=== PATIENT | female | born 1985 | race African-American/Black ===

== ENCOUNTER 2023-06-20 09:28 | Day surgery (SDC) | payer OTHER ==
[~2023-06-20] VITALS: Ht 162.6 cm; Wt 101.6 kg
[2023-06-20 10:33] LABS: BASOPHILS % (AUTO) 0.6 % (0.0-2.0); EOSINOPHILS # (AUTO) 0.1 K/uL (0-0.4); EOSINOPHILS % (AUTO) 1.1 % (0.0-4.0); HEMATOCRIT 38.8 % (36-48); HEMOGLOBIN 13.2 g/dL (12.0-16.0); LYMPHOCYTES # (AUTO) 2.1 K/uL (2.5-16.5); LYMPHOCYTES % (AUTO) 31.8 % (20.5-51.1); MEAN CORPUSCULAR HEMOGLOBIN 28 pg (27-31); MEAN CORPUSCULAR HGB CONC 34 g/dL (33-37); MEAN CORPUSCULAR VOLUME 82.4 fL (80-94); MONOCYTES # (AUTO) 0.4 K/uL (0.8-1.0); MONOCYTES % (AUTO) 6.5 % (1.7-9.3); NEUTROPHILS # (AUTO) 3.9 K/uL (1.8-7.7); PLATELET COUNT (AUTO) 291 K/uL (140-450); RED BLOOD CELL COUNT(AUTO) 4.71 MIL/uL (4.20-5.40); RED CELL DISTRIBUTION WIDTH 14.7 % (11.6-13.7); WHITE BLOOD COUNT (AUTO) 6.5 K/uL (4.8-10.8)
[2023-06-20] MEDS ORDERED: KETOROLAC 30 MG/ML VIAL ONE (11:00)
[2023-06-20] MEDS ORDERED: DEXAMETHASONE 4 MG/ML VIAL ONE (11:00)
[2023-06-20] MEDS ORDERED: ONDANSETRON 4 MG/2 ML VIAL ONE (11:00)
[2023-06-20] MEDS ORDERED: COMMUNICATION ORDER MC PRN (11:30)
[2023-06-20] MEDS ORDERED: FERRIC SUBSULFATE 20%-22%-8 ML PASTE TP ONE (11:30)
[2023-06-20] MEDS ORDERED: MIDAZOLAM 2 MG/2 ML VIAL ONE (11:38)
[2023-06-20] MEDS ORDERED: fentaNYL citrate 0.05 MG/ML VIAL ONE (11:39)
[2023-06-20] MEDS ORDERED: PROPOFOL 200 MG/20 ML VIAL IV ONE (11:39)
[2023-06-20] MEDS ORDERED: POTASSIUM IODIDE/IODINE 5% 14 ML BTL MC SCH (11:40)
[2023-06-20] MEDS ORDERED: KETAMINE 500 MG/5 ML VIAL ONE (11:46)
[2023-06-20] MEDS ORDERED: PROPOFOL 1000 MG/100 ML PREMIX 100 ML IV ONE (12:06)
== END 2023-06-20 14:50 | disposition home or self-care (01) ==
LOC: MDS 09:28 → MMU 09:29 → MDS 14:50
PROVIDERS: ATTEND Obstetrics & Gynecology
DX: N87.1 Moderate cervical dysplasia (principal); R07.9 Chest pain, unspecified; D64.9 Anemia, unspecified; F41.9 Anxiety disorder, unspecified; Z88.0 Allergy status to penicillin; Z79.899 Other long term (current) drug therapy; Z98.890 Other specified postprocedural states
CPT/HCPCS: 36415; 57522; 85025; C1758; J1100; J1885; J2250; J2405; J2704; J3010